=== PATIENT | male | born 1990 | race Caucasian/White ===

== ENCOUNTER 2018-03-26 14:21 | Inpatient (IN) | payer MEDICAID ==
[~2018-03-26] VITALS: Ht 180.3 cm; Wt 111.6 kg
[2018-03-26] MEDS ORDERED: PALI39DI IM (14:25)
[2018-03-26] MEDS ORDERED: PROZ10 PO (14:25)
[2018-03-26] MEDS ORDERED: QUEtiapine FUMARATE 100 MG TABLET PO ONE (15:00)
[2018-03-26 15:16] LABS: AMPHET/METH SCREEN,URINE NEGATIVE (NEGATIVE); BARBITURATE SCREEN, URINE NEGATIVE (NEGATIVE); BENZODIAZEPINES SCREEN,URINE NEGATIVE (NEGATIVE); CANNABINOID SCREEN,URINE POSITIVE (NEGATIVE); COCAINE SCREEN,URINE NEGATIVE (NEGATIVE); METHADONE SCREEN, URINE NEGATIVE (NEGATIVE); OPIATE SCREEN,URINE NEGATIVE (NEGATIVE)
[2018-03-26 15:21] LABS: PHENCYCLIDINE SCREEN,URINE NEGATIVE (NEGATIVE)
[2018-03-26 15:29] LABS: BASOPHILS % (AUTO) 0.4 % (0.0-2.0); EOSINOPHILS % (AUTO) 0.1 % (1.0-6.0); HEMATOCRIT 43.5 % (41-53); HEMOGLOBIN 15.1 g/dL (13.5-17.5); LYMPHOCYTES # (AUTO) 0.9 K/uL (1.0-4.8); LYMPHOCYTES % (AUTO) 11.6 % (22.0-44.0); MEAN CORPUSCULAR HEMOGLOBIN 29.9 pg (26.0-34.0); MEAN CORPUSCULAR HGB CONC 34.7 G/dL (31.0-37.0); MEAN CORPUSCULAR VOLUME 86 fL (80-100); MONOCYTES # (AUTO) 0.6 K/uL (0.1-1.0); MONOCYTES % (AUTO) 7.2 % (2.0-9.0); NEUTROPHILS # (AUTO) 6.3 K/uL (1.8-7.7); NEUTROPHILS % (AUTO) 80.7 % (40.0-70.0); PLATELET COUNT (AUTO) 300 K/uL (150-450); RED BLOOD CELL COUNT(AUTO) 5.04 MIL/uL (4.50-5.90); RED CELL DISTRIBUTION WIDTH 13.4 % (11.5-14.5)
[2018-03-26 15:33] LABS: ANION GAP 10 mmol/L (8-16); CALCIUM, TOTAL 9.2 mg/dL (8.8-10.5); CARBON DIOXIDE 26 mmol/L (22-29); CHLORIDE 101 mmol/L (98-107); CREATININE 0.96 mg/dL (0.60-1.30); GLOMERULAR FILTR. RATE CALC > 60 mL/min (>60); GLUCOSE,RANDOM 115 mg/dL (70-110); POTASSIUM 3.9 mmol/L (3.5-5.1); SODIUM SERUM 137 mmol/L (136-145); UREA NITROGEN, BLOOD 7 mg/dL (7-18)
[2018-03-26 15:39] LABS: ALANINE AMINOTRANSFERASE 26 U/L (12-78); ALBUMIN 4.4 g/dL (3.4-5.0); ALKALINE PHOSPHATASE 66 U/L (46-116); ASPARTATE AMINOTRANSFERASE 18 U/L (15-37); TOTAL PROTEIN, SERUM 7.6 g/dL (6.4-8.2)
[2018-03-26] MEDS ORDERED: LORazepam 2 MG TABLET PO ONE (16:00)
[2018-03-26] MEDS ORDERED: LORazepam 2 MG TABLET PO PRN (16:30)
[2018-03-26] MEDS ORDERED: ZOLPIDEM TARTRATE 10 MG TABLET PO PRN (16:30)
[2018-03-26] MEDS ORDERED: HALOPERIDOL 5 MG TABLET PO PRN (16:30)
[2018-03-26 20:35] VITALS: BP 127/87
[2018-03-27] VITALS: BP 118/80
[2018-03-27 08:14] LABS: CHOL/HDL RATIO 3.6 (4.2-7.3)
[2018-03-27 08:27] VITALS: BP 139/76
[2018-03-27] MEDS ORDERED: BISACODYL 5 MG EC TABLET PO PRN (10:45)
[2018-03-27] MEDS: ARIPiprazole 10 MG TABLET PO SCH (12:01)
[2018-03-27 16:04] VITALS: BP 118/78
[2018-03-28 00:55] VITALS: BP 122/64
[2018-03-28 08:05] VITALS: BP 119/71
[2018-03-28] MEDS: ARIPiprazole 10 MG TABLET PO SCH (09:22)
[2018-03-28 16:08] VITALS: BP 128/64
[2018-03-29 02:26] VITALS: BP 108/66
[2018-03-29 08:39] VITALS: BP 115/66
[2018-03-29] MEDS: ARIPiprazole 15 MG TABLET PO SCH (08:45)
[2018-03-29 16:04] VITALS: BP 121/74
[2018-03-30 00:37] VITALS: BP 121/62
[2018-03-30 08:00] VITALS: BP 120/83
[2018-03-30] MEDS: ARIPiprazole 15 MG TABLET PO SCH (08:47)
[2018-03-30 16:01] VITALS: BP 117/75
[2018-03-31 00:30] VITALS: BP 121/62
[2018-03-31 08:22] VITALS: BP 119/67
[2018-03-31] MEDS: ARIPiprazole 15 MG TABLET PO SCH (08:31)
[2018-03-31 16:09] VITALS: BP 122/76
[2018-04-01 05:15] VITALS: BP 120/80
[2018-04-01 08:16] VITALS: BP 122/68
[2018-04-01] MEDS: ARIPiprazole 15 MG TABLET PO SCH (08:59)
[2018-04-01] MEDS: SERTRALINE HCL 50 MG TABLET PO SCH (09:54)
[2018-04-01 16:31] VITALS: BP 135/88
[2018-04-02 01:40] VITALS: BP 122/81
[2018-04-02 08:29] VITALS: BP 121/78
[2018-04-02] MEDS: SERTRALINE HCL 50 MG TABLET PO SCH (09:16)
[2018-04-02] MEDS: ARIPiprazole 15 MG TABLET PO SCH (09:16)
[2018-04-02 16:11] VITALS: BP 110/67
[2018-04-03 06:25] VITALS: BP 128/63
[2018-04-03 08:04] VITALS: BP 124/74
[2018-04-03] MEDS: SERTRALINE HCL 50 MG TABLET PO SCH (09:15)
[2018-04-03] MEDS: ARIPiprazole 15 MG TABLET PO SCH (09:15)
[2018-04-03 16:54] VITALS: BP 125/82
[2018-04-04 05:29] VITALS: BP 120/80
[2018-04-04 08:45] VITALS: BP 121/71
[2018-04-04] MEDS: ARIPiprazole 15 MG TABLET PO SCH (09:13)
[2018-04-04] MEDS: SERTRALINE HCL 50 MG TABLET PO SCH (09:13)
[2018-04-04 16:02] VITALS: BP 122/85
[2018-04-05 05:55] VITALS: BP 120/81
[2018-04-05 08:06] VITALS: BP 144/88
[2018-04-05] MEDS: SERTRALINE HCL 100 MG TABLET PO SCH (08:19)
[2018-04-05] MEDS: ARIPiprazole 15 MG TABLET PO SCH (08:19)
[2018-04-05 16:12] VITALS: BP 124/77
[2018-04-06 06:23] VITALS: BP 122/82
[2018-04-06 08:38] VITALS: BP 124/74
[2018-04-06] MEDS: ARIPiprazole 10 MG TABLET PO SCH (08:45)
[2018-04-06] MEDS: SERTRALINE HCL 100 MG TABLET PO SCH (08:45)
[2018-04-06 16:10] VITALS: BP 122/80
[2018-04-07 01:45] VITALS: BP 120/81
[2018-04-07 08:19] VITALS: BP 137/73
[2018-04-07] MEDS: ARIPiprazole 10 MG TABLET PO SCH (09:42)
[2018-04-07] MEDS: SERTRALINE HCL 100 MG TABLET PO SCH (09:42)
[2018-04-07 18:02] VITALS: BP 133/84
[2018-04-08 02:31] VITALS: BP 130/86
[2018-04-08] MEDS: ARIPiprazole 10 MG TABLET PO SCH (08:17)
[2018-04-08] MEDS: SERTRALINE HCL 100 MG TABLET PO SCH (08:17)
[2018-04-08 08:26] VITALS: BP 136/84
[2018-04-08 14:01] VITALS: BP 118/78
[2018-04-08 16:07] VITALS: BP 134/90
[2018-04-09 05:33] VITALS: BP 130/86
[2018-04-09] MEDS ORDERED: SERT100T12 PO (08:30)
[2018-04-09] MEDS ORDERED: ARIP10TA8 PO (08:30)
[2018-04-09 08:46] VITALS: BP 129/70
[2018-04-09] MEDS: ARIPiprazole 10 MG TABLET PO SCH (09:02)
[2018-04-09] MEDS: SERTRALINE HCL 100 MG TABLET PO SCH (09:02)
== END 2018-04-09 12:05 | disposition home or self-care (01) | DRG 750 ==
LOC: EMS 14:22 → B2S 17:59
PROVIDERS: ADMIT Psychiatry & Neurology Child & Adolescent Psychiatry; ATTEND Psychiatry & Neurology Child & Adolescent Psychiatry
DX: F20.0 Paranoid schizophrenia (principal); R45.851 Suicidal ideations; Z91.14 Patient's other noncompliance with medication regimen; F12.90 Cannabis use, unspecified, uncomplicated; K59.00 Constipation, unspecified; F17.210 Nicotine dependence, cigarettes, uncomplicated; Z91.5 Personal history of self-harm; Z59.0 Homelessness; Z79.899 Other long term (current) drug therapy
CPT/HCPCS: 87081; 99285; G0480

== ENCOUNTER 2019-04-11 22:01 | Inpatient (IN) | payer MEDICAID ==
[~2019-04-11] VITALS: Ht 177.8 cm; Wt 133.4 kg
[~2019-04-11 22:01] MED LIST: ARIP10TA8 PO; SERT100T12 PO
[2019-04-11] MEDS ORDERED: MIRT15 PO (22:08)
[2019-04-11 22:42] LABS: BASOPHILS % (AUTO) 0.8 % (0.0-2.0); EOSINOPHILS % (AUTO) 1.6 % (1.0-6.0); HEMATOCRIT 44.6 % (41-53); LYMPHOCYTES % (AUTO) 13.7 % (22.0-44.0); MEAN CORPUSCULAR HEMOGLOBIN 30.1 pg (26.0-34.0); MEAN CORPUSCULAR HGB CONC 33.8 G/dL (31.0-37.0); MEAN CORPUSCULAR VOLUME 89 fL (80-100); MONOCYTES # (AUTO) 0.5 K/uL (0.1-1.0); MONOCYTES % (AUTO) 7.2 % (2.0-9.0); NEUTROPHILS # (AUTO) 5.3 K/uL (1.8-7.7); NEUTROPHILS % (AUTO) 76.7 % (40.0-70.0); PLATELET COUNT (AUTO) 261 K/uL (150-450); RED CELL DISTRIBUTION WIDTH 13.9 % (11.5-14.5)
[2019-04-11 22:51] LABS: AMPHET/METH SCREEN,URINE NEGATIVE (NEGATIVE); BARBITURATE SCREEN, URINE NEGATIVE (NEGATIVE); BENZODIAZEPINES SCREEN,URINE NEGATIVE (NEGATIVE); CANNABINOID SCREEN,URINE POSITIVE (NEGATIVE); COCAINE SCREEN,URINE NEGATIVE (NEGATIVE); METHADONE SCREEN, URINE NEGATIVE (NEGATIVE); OPIATE SCREEN,URINE NEGATIVE (NEGATIVE); PHENCYCLIDINE SCREEN,URINE NEGATIVE (NEGATIVE)
[2019-04-11 22:54] LABS: ANION GAP 9 mmol/L (8-16); CALCIUM, TOTAL 9.1 mg/dL (8.8-10.5); CARBON DIOXIDE 27 mmol/L (22-29); CHLORIDE 103 mmol/L (98-107); CREATININE 0.97 mg/dL (0.60-1.30); GLOMERULAR FILTR. RATE CALC > 60 mL/min (>60); GLUCOSE,RANDOM 96 mg/dL (70-110); POTASSIUM 4.1 mmol/L (3.5-5.1); SODIUM SERUM 139 mmol/L (136-145); UREA NITROGEN, BLOOD 12 mg/dL (7-18)
[2019-04-11 23:00] LABS: ALANINE AMINOTRANSFERASE 57 U/L (12-78); ALBUMIN 4.2 g/dL (3.4-5.0); ALKALINE PHOSPHATASE 71 U/L (46-116); ASPARTATE AMINOTRANSFERASE 32 U/L (15-37); BILIRUBIN,TOTAL 0.4 mg/dL (0.1-1.0); TOTAL PROTEIN, SERUM 7.1 g/dL (6.4-8.2)
[2019-04-11] MEDS ORDERED: LORazepam 2 MG TABLET PO PRN (23:30)
[2019-04-11] MEDS ORDERED: HALOPERIDOL 5 MG TABLET PO PRN (23:30)
[2019-04-11] MEDS ORDERED: ZOLPIDEM TARTRATE 10 MG TABLET PO PRN (23:30)
[2019-04-12 06:01] LABS: CHOL/HDL RATIO 4.3 (4.2-7.3); FREE T4 (FREE THYROXINE) 0.93 ng/dL (0.76-1.46); THYROID STIMULATING HORMONE 1.08 uIU/mL (0.36-3.74)
[2019-04-12 10:15] VITALS: BP 140/73
[2019-04-12] MEDS ORDERED: MAGNESIUM HYDROXIDE SUSPENSION 30 ML UDCUP PO PRN (11:15)
[2019-04-12] MEDS ORDERED: DOCUSATE SODIUM 100 MG CAPSULE PO PRN (11:15)
[2019-04-12] MEDS ORDERED: IBUPROFEN 400 MG TABLET PO PRN (11:15)
[2019-04-12] MEDS ORDERED: ALBUTEROL SULFATE HFA 90 MCG/PUFF 8 GM INHALER IH PRN (11:15)
[2019-04-12] MEDS ORDERED: ACETAMINOPHEN 325 MG TABLET PO PRN (11:15)
[2019-04-12] MEDS ORDERED: CloNIDine HCL 0.1 MG TABLET PO PRN (11:15)
[2019-04-12] MEDS ORDERED: LOPERAMIDE HCL 2 MG CAPSULE PO PRN (11:15)
[2019-04-12] MEDS ORDERED: ONDANSETRON HCL 4 MG TABLET PO PRN (11:15)
[2019-04-12] MEDS ORDERED: MAG HYDROX/AL HYDROX/SIMETH ES 30 ML SUSPENSION UDCUP PO PRN (11:15)
[2019-04-12] MEDS ORDERED: GuaiFENesin/D-METHORPHAN [SUGAR-FREE] 200-20MG/10 ML SYRUP UDCUP PO PRN (11:15)
[2019-04-12] MEDS ORDERED: PETROLATUM,WHITE 28 GM JELLY TP PRN (11:15)
[2019-04-12] MEDS: ARIPiprazole 10 MG TABLET PO SCH (12:50)
[2019-04-12] MEDS: NICOTINE 14 MG/24 HOUR PATCH TD SCH (12:50)
[2019-04-12 16:57] VITALS: BP 141/81
[2019-04-12] MEDS: SERTRALINE HCL 100 MG TABLET PO SCH (20:12)
[2019-04-12] MEDS: MIRTAZAPINE 15 MG TABLET PO SCH (20:12)
[2019-04-12] MEDS ORDERED: MIRTAZAPINE 15 MG TABLET PO SCH (21:00)
[2019-04-13 06:28] VITALS: BP 140/87
[2019-04-13 07:53] LABS: BASOPHILS % (AUTO) 0.7 % (0.0-2.0); EOSINOPHILS % (AUTO) 3.8 % (1.0-6.0); HEMATOCRIT 46.1 % (41-53); HEMOGLOBIN 15.4 g/dL (13.5-17.5); LYMPHOCYTES # (AUTO) 2.1 K/uL (1.0-4.8); LYMPHOCYTES % (AUTO) 29.4 % (22.0-44.0); MEAN CORPUSCULAR HEMOGLOBIN 29.3 pg (26.0-34.0); MEAN CORPUSCULAR HGB CONC 33.3 G/dL (31.0-37.0); MEAN CORPUSCULAR VOLUME 88 fL (80-100); MONOCYTES # (AUTO) 0.5 K/uL (0.1-1.0); MONOCYTES % (AUTO) 7.6 % (2.0-9.0); NEUTROPHILS # (AUTO) 4.1 K/uL (1.8-7.7); NEUTROPHILS % (AUTO) 58.5 % (40.0-70.0); PLATELET COUNT (AUTO) 264 K/uL (150-450); RED BLOOD CELL COUNT(AUTO) 5.24 MIL/uL (4.50-5.90)
[2019-04-13 08:06] LABS: CHOL/HDL RATIO 4.4 (4.2-7.3)
[2019-04-13 08:10] LABS: HEMOGLOBIN A1C 5.4 % (4.5-6.2)
[2019-04-13] MEDS: NICOTINE 14 MG/24 HOUR PATCH TD SCH (08:51)
[2019-04-13] MEDS: ARIPiprazole 10 MG TABLET PO SCH (08:51)
[2019-04-13 09:03] VITALS: BP 107/64
[2019-04-13 09:05] LABS: ALANINE AMINOTRANSFERASE 55 U/L (12-78); ALBUMIN 4.2 g/dL (3.4-5.0); ALKALINE PHOSPHATASE 72 U/L (46-116); ANION GAP 11 mmol/L (8-16); ASPARTATE AMINOTRANSFERASE 18 U/L (15-37); BILIRUBIN,TOTAL 0.5 mg/dL (0.1-1.0); CALCIUM, TOTAL 9.1 mg/dL (8.8-10.5); CARBON DIOXIDE 25 mmol/L (22-29); CHLORIDE 104 mmol/L (98-107); CREATININE 0.94 mg/dL (0.60-1.30); GLOMERULAR FILTR. RATE CALC > 60 mL/min (>60); GLUCOSE,RANDOM 86 mg/dL (70-110); SODIUM SERUM 140 mmol/L (136-145); THYROID STIMULATING HORMONE 0.76 uIU/mL (0.36-3.74); TOTAL PROTEIN, SERUM 6.8 g/dL (6.4-8.2); UREA NITROGEN, BLOOD 10 mg/dL (7-18)
[2019-04-13 16:23] VITALS: BP 120/74
[2019-04-13] MEDS: SERTRALINE HCL 100 MG TABLET PO SCH (20:02)
[2019-04-13] MEDS: MIRTAZAPINE 15 MG TABLET PO SCH (20:02)
[2019-04-14 00:35] VITALS: BP 129/71
[2019-04-14 09:20] VITALS: BP 140/65
[2019-04-14] MEDS: NICOTINE 14 MG/24 HOUR PATCH TD SCH (09:49)
[2019-04-14] MEDS: ARIPiprazole 10 MG TABLET PO SCH (09:49)
[2019-04-14 16:13] VITALS: BP 127/74
[2019-04-14] MEDS: SERTRALINE HCL 100 MG TABLET PO SCH (20:39)
[2019-04-14] MEDS: MIRTAZAPINE 15 MG TABLET PO SCH (20:40)
[2019-04-15 00:33] VITALS: BP 120/80
[2019-04-15 08:18] VITALS: BP 103/62
[2019-04-15] MEDS: ARIPiprazole 10 MG TABLET PO SCH (08:56)
[2019-04-15] MEDS: NICOTINE 14 MG/24 HOUR PATCH TD SCH (11:27)
[2019-04-15 16:14] VITALS: BP 114/83
[2019-04-15] MEDS: SERTRALINE HCL 100 MG TABLET PO SCH (20:25)
[2019-04-15] MEDS: MIRTAZAPINE 15 MG TABLET PO SCH (20:25)
[2019-04-16 00:34] VITALS: BP 128/82
[2019-04-16 08:10] VITALS: BP 121/78
[2019-04-16] MEDS: ARIPiprazole 10 MG TABLET PO SCH (08:39)
[2019-04-16] MEDS: NICOTINE 14 MG/24 HOUR PATCH TD SCH (08:39)
[2019-04-16 16:51] VITALS: BP 119/83
[2019-04-16] MEDS: SERTRALINE HCL 100 MG TABLET PO SCH (20:04)
[2019-04-16] MEDS: MIRTAZAPINE 15 MG TABLET PO SCH (20:04)
[2019-04-17 04:50] VITALS: BP_SYST 118; BP_SYST 130; BP_DIAS 80; BP_DIAS 87
[2019-04-17 08:39] VITALS: BP 124/58
[2019-04-17] MEDS: NICOTINE 14 MG/24 HOUR PATCH TD SCH (08:58)
[2019-04-17] MEDS: ARIPiprazole 10 MG TABLET PO SCH (08:58)
[2019-04-17 16:14] VITALS: BP 126/77
[2019-04-17] MEDS: SERTRALINE HCL 100 MG TABLET PO SCH (20:02)
[2019-04-17] MEDS: MIRTAZAPINE 15 MG TABLET PO SCH (20:03)
[2019-04-18 06:54] VITALS: BP 131/74
[2019-04-18 08:34] VITALS: BP 140/60
[2019-04-18] MEDS: ARIPiprazole 10 MG TABLET PO SCH (08:50)
[2019-04-18] MEDS: NICOTINE 14 MG/24 HOUR PATCH TD SCH (08:51)
[2019-04-18 14:04] VITALS: BP 115/73
[2019-04-18 16:20] VITALS: BP 115/63
[2019-04-18] MEDS ORDERED: MIRT15 PO (20:07)
[2019-04-18] MEDS ORDERED: SERT100T12 PO (20:08)
[2019-04-18] MEDS: MIRTAZAPINE 15 MG TABLET PO SCH (20:52)
[2019-04-18] MEDS: SERTRALINE HCL 100 MG TABLET PO SCH (20:52)
[2019-04-19 00:20] VITALS: BP 130/82
[2019-04-19 08:37] VITALS: BP 116/84
[2019-04-19] MEDS: ARIPiprazole 10 MG TABLET PO SCH (09:03)
[2019-04-19] MEDS: NICOTINE 14 MG/24 HOUR PATCH TD SCH (09:03)
[2019-04-19 16:00] VITALS: BP 138/64
[2019-04-19] MEDS ORDERED: NICOTINE POLACRILEX 2 MG LOZENGE PO PRN (18:45)
[2019-04-19] MEDS: SERTRALINE HCL 100 MG TABLET PO SCH (20:16)
[2019-04-19] MEDS: MIRTAZAPINE 15 MG TABLET PO SCH (20:16)
[2019-04-20 06:21] VITALS: BP 123/61
[2019-04-20] MEDS: ARIPiprazole 10 MG TABLET PO SCH (08:26)
[2019-04-20 08:41] VITALS: BP 116/65
[2019-04-20 17:05] VITALS: BP 113/71
[2019-04-20] MEDS: SERTRALINE HCL 100 MG TABLET PO SCH (20:11)
[2019-04-20] MEDS: MIRTAZAPINE 15 MG TABLET PO SCH (20:11)
[2019-04-21 05:49] VITALS: BP 118/65
[2019-04-21 08:40] VITALS: BP 138/71
[2019-04-21] MEDS: ARIPiprazole 10 MG TABLET PO SCH (08:48)
[2019-04-21] MEDS: NICOTINE 14 MG/24 HOUR PATCH TD SCH (08:48)
[2019-04-21 16:12] VITALS: BP 121/81
[2019-04-21] MEDS: SERTRALINE HCL 100 MG TABLET PO SCH (21:33)
[2019-04-21] MEDS: MIRTAZAPINE 15 MG TABLET PO SCH (21:33)
[2019-04-22 03:00] VITALS: BP 120/81
[2019-04-22 08:15] VITALS: BP 123/62
[2019-04-22] MEDS ORDERED: SERT100T12 PO (08:33)
[2019-04-22] MEDS: ARIPiprazole 10 MG TABLET PO SCH (08:37)
[2019-04-22] MEDS: NICOTINE 14 MG/24 HOUR PATCH TD SCH (08:37)
[2019-04-22 16:12] VITALS: BP 124/84
[2019-04-22] MEDS: SERTRALINE HCL 100 MG TABLET PO SCH (20:04)
[2019-04-22] MEDS: MIRTAZAPINE 15 MG TABLET PO SCH (20:04)
[2019-04-23 02:27] VITALS: BP 109/65
[2019-04-23] MEDS: ARIPiprazole 10 MG TABLET PO SCH (08:27)
[2019-04-23] MEDS: NICOTINE 14 MG/24 HOUR PATCH TD SCH (08:28)
[2019-04-23 08:38] VITALS: BP 125/85
== END 2019-04-23 13:20 | disposition home or self-care (01) | DRG 750 ==
LOC: EMS 22:04 → B2S 04-12 06:29
PROVIDERS: ADMIT Psychiatry & Neurology Child & Adolescent Psychiatry; ATTEND Psychiatry & Neurology Child & Adolescent Psychiatry
DX: F25.0 Schizoaffective disorder, bipolar type (principal); R45.851 Suicidal ideations; Z91.19 Patient's noncompliance with other medical treatment and regimen; E78.5 Hyperlipidemia, unspecified; F12.10 Cannabis abuse, uncomplicated; F10.10 Alcohol abuse, uncomplicated; F41.9 Anxiety disorder, unspecified; F17.210 Nicotine dependence, cigarettes, uncomplicated; Z79.899 Other long term (current) drug therapy; Z71.41 Alcohol abuse counseling and surveillance of alcoholic; Z71.51 Drug abuse counseling and surveillance of drug abuser
CPT/HCPCS: 83036; 84436; 84439; 84443; G0480

== ENCOUNTER 2023-07-20 23:14 | Inpatient (IN) | payer MEDICAID ==
[~2023-07-20] VITALS: Ht 180.3 cm; Wt 149.2 kg
[~2023-07-20 23:14] MED LIST changes: +ARIP10TA38 PO; -ARIP10TA8 PO; +MIRT-89 PO; +SERT-162 PO; -SERT100T12 PO
[2023-07-21] MEDS ORDERED: HALOPERIDOL 5 MG TABLET PO PRN (01:15)
[2023-07-21] MEDS ORDERED: LORazepam 2 MG TABLET PO PRN (01:15)
[2023-07-21 04:13] VITALS: BP 112/94; PULSE 98; RESP 18; TEMP 97.6
[2023-07-21 04:16] VITALS: BP 112/94; PULSE 98; RESP 16; TEMP 97.3; O2SAT 97
[2023-07-21 08:29] VITALS: BP 135/70; PULSE 95; RESP 18; TEMP 97.4; O2SAT 95
[2023-07-21 08:32] VITALS: BP 105/70; PULSE 95; RESP 18; TEMP 97.4
[2023-07-21] MEDS ORDERED: ALBUTEROL SULFATE HFA 90 MCG/PUFF 8 GM INHALER IH PRN (08:45)
[2023-07-21] MEDS ORDERED: CloNIDine HCL 0.1 MG TABLET PO PRN (08:45)
[2023-07-21] MEDS ORDERED: BACITRACIN 28 GM OINTMENT TP PRN (08:45)
[2023-07-21] MEDS ORDERED: OMEPRAZOLE 20 MG CAPSULE PO PRN (08:45)
[2023-07-21] MEDS ORDERED: LOPERAMIDE HCL 2 MG CAPSULE PO PRN (08:45)
[2023-07-21] MEDS ORDERED: DOCUSATE SODIUM 100 MG CAPSULE PO PRN (08:45)
[2023-07-21] MEDS ORDERED: BENZOCAINE/MENTHOL LOZENGE PO PRN (08:45)
[2023-07-21] MEDS ORDERED: PETROLATUM,WHITE 28 GM JELLY TP PRN (08:45)
[2023-07-21] MEDS ORDERED: MAGNESIUM HYDROXIDE SUSPENSION 30 ML UDCUP PO PRN (08:45)
[2023-07-21] MEDS ORDERED: ACETAMINOPHEN 325 MG TABLET PO PRN (08:45)
[2023-07-21] MEDS ORDERED: IBUPROFEN 600 MG TABLET PO PRN (08:45)
[2023-07-21] MEDS ORDERED: ONDANSETRON HCL 4 MG TABLET PO PRN (08:45)
[2023-07-21] MEDS ORDERED: MAG HYDROX/ALUMINUM HYD/SIMETH ES 30 ML SUSPENSION UDCUP PO PRN (08:45)
[2023-07-21] MEDS: BuPROPion HCL XL 150 MG ER TABLET PO SCH (16:30)
[2023-07-21] MEDS ORDERED: NICOTINE POLACRILEX 2 MG LOZENGE PO PRN (16:30)
[2023-07-21] MEDS: ATORVASTATIN CALCIUM 10 MG TABLET PO SCH (20:26)
[2023-07-21 21:04] VITALS: BP 128/65; PULSE 92; RESP 18; TEMP 97.6; O2SAT 97
[2023-07-21 23:44] VITALS: RESP 18
[2023-07-22 07:54] LABS: HEMOGLOBIN A1C 5.7 % (3.8-5.6)
[2023-07-22 08:26] LABS: CHOL/HDL RATIO 3.3 (4.2-7.3); FREE T4 (FREE THYROXINE) 1.06 ng/dL (0.76-1.46); THYROID STIMULATING HORMONE 0.61 uIU/mL (0.36-3.74)
[2023-07-22 08:47] VITALS: BP 124/75; PULSE 91; RESP 18; TEMP 97.4; O2SAT 98
[2023-07-22] MEDS: BuPROPion HCL XL 150 MG ER TABLET PO SCH (08:52)
[2023-07-22 20:18] VITALS: BP 123/68; PULSE 87; RESP 17; TEMP 97.8; O2SAT 98
[2023-07-22] MEDS: ATORVASTATIN CALCIUM 10 MG TABLET PO SCH (20:20)
[2023-07-22] MEDS: ZOLPIDEM TARTRATE 10 MG TABLET PO PRN (20:51)
[2023-07-23 08:07] VITALS: BP 108/62; PULSE 95; RESP 18; TEMP 98.3; O2SAT 97
[2023-07-23] MEDS: BuPROPion HCL XL 150 MG ER TABLET PO SCH (08:34)
[2023-07-23 20:48] VITALS: BP 110/64; PULSE 90; RESP 18; TEMP 97.8; O2SAT 97
[2023-07-23] MEDS: ATORVASTATIN CALCIUM 10 MG TABLET PO SCH (20:48)
[2023-07-23] MEDS: ZOLPIDEM TARTRATE 10 MG TABLET PO PRN (20:54)
[2023-07-24] MEDS: BuPROPion HCL XL 150 MG ER TABLET PO SCH (08:03)
[2023-07-24 08:34] VITALS: BP 135/91; PULSE 94; RESP 19; TEMP 97.6; O2SAT 99
[2023-07-24] MEDS ORDERED: BUPR-50 PO (09:20)
[2023-07-24] MEDS ORDERED: ATOR10TA PO (09:25)
== END 2023-07-24 10:15 | disposition home or self-care (01) | DRG 750 ==
LOC: B3A 07-21 02:01 → B2S 07-21 12:24
PROVIDERS: ADMIT Psychiatry & Neurology Psychiatry; ATTEND Psychiatry & Neurology Psychiatry
DX: F25.9 Schizoaffective disorder, unspecified (principal); R45.851 Suicidal ideations; E66.9 Obesity, unspecified; F41.9 Anxiety disorder, unspecified; K21.9 Gastro-esophageal reflux disease without esophagitis; G47.00 Insomnia, unspecified; Z68.42 Body mass index [BMI] 45.0-49.9, adult
CPT/HCPCS: 80061; 83036; 84439; 84443